=== PATIENT | male | born 1945 | race Hispanic/Latino ===

== ENCOUNTER 2018-01-18 12:18 | Outpatient (CLI) | payer MEDICARE ==
--- NOTE | 2018-01-18 13:54 | RAD ---
RIGHT KNEE 3 VIEWS: Date: 01/18/18 HISTORY: Right knee pain. FINDINGS: Degenerative changes are present. There is chondrocalcinosis. No fracture, dislocation, or bony destr uction identified. IMPRESSION: Right knee osteoarthritis. POS: BYRON
== END 2018-01-18 12:19 | disposition home or self-care (01) ==
LOC: RAD 12:18
PROVIDERS: ATTEND Family Medicine
DX: M22.2X1 Patellofemoral disorders, right knee (principal); M17.11 Unilateral primary osteoarthritis, right knee

== ENCOUNTER 2019-08-17 18:28 | Emergency (ER) | payer MEDICARE ==
--- NOTE | 2019-08-17 20:22 | CT ---
CT CERVICAL SPINE WITH SAGITTAL AND CORONAL REFORMATIONS: History: Fall, neck pain. FINDINGS: Degenerative changes are present. There is loss of cervical lordosis and straightening of the cervica l spine. No acute fracture or subluxation or malalignment is identified. IMPRESSION: As above. POS: MILY
--- NOTE | 2019-08-17 20:28 | CT ---
CT BRAIN NONCONTRAST: DATE: 08-17-2019 HISTORY: 73-year-old male status post acute head trauma from fall. FINDINGS: There is no midline shift or any other mass effect. There is no evidence of acute intracranial hemor rhage, large cortical infarct, obstructive hydrocephalus, or extraaxial fluid collection. The calvar ium is intact. IMPRESSION: No acute intracranial findings. nasrin POS: JIN
--- NOTE | 2019-08-17 20:31 | CT ---
CT MAXILLOFACIAL NONCONTRAST: DATE: 08-17-2019 HISTORY: 73-year-old male status post-acute facial trauma from fall. 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 No evidence of intra orbital edema, contusion, or gas. No air fluid levels in the paranasal sinuses. No hematoma in superf icial or deep soft tissues. No fracture. Poor dentation. IMPRESSION: 1. No acute fracture. 2. Bilateral staphylomas. POS: JIN
== END 2019-08-17 20:02 | disposition home or self-care (01) ==
LOC: ERS 18:28
DX: R04.0 Epistaxis (principal); F03.90 Unspecified dementia, unspecified severity, without behavioral disturbance, psychotic disturbance, mood disturbance, and anxiety; Z79.899 Other long term (current) drug therapy; W01.198A Fall on same level from slipping, tripping and stumbling with subsequent striking against other object, initial encounter
CPT/HCPCS: 70450; 70486; 72125

== ENCOUNTER 2020-04-02 12:22 | Emergency (ER) | payer MEDICARE ==
--- NOTE | 2020-04-02 13:31 | CT ---
CT BRAIN WITHOUT CONTRAST: HISTORY:Fall, headache COMPARISON:08/17/2019 FINDINGS: No evidence of acute infarct, hemorrhage, midline shift or abnormal extra-axial fluid collections is seen. The ventricular size is appropriate and the basilar cisterns are patent. The bony calvarium is intact. There is mild right periorbital soft tissue swelling.The visualized paranasal sinuses and mastoid air cells are well aerated. IMPRESSION: No CT evidence of acute intracranial process.
--- NOTE | 2020-04-02 13:33 | CT ---
CT cervical spine without contrast: 04/02/2020 COMPARISON: 08/17/2019 HISTORY: Fall, injury, trauma, pain TECHNIQUE: Axial CT imaging at 2.5 mm intervals through the cervical spine without contrast. Coronal and sagittal reformatted imaging obtained. FINDINGS: The C1 ring is intact. Occipital condyles, dens, and C1-2 articulation unremarkable. There is mild degenerative change at the atlantoaxial interspace. Cervical vertebral body height and alignment appears within normal limits. Disc space narrowing with anterior osteophyte formation noted at C4-5, C5-6, and C6-7. There is prominent atherosclerotic calcification involving the proximal aspect of the internal caroti d artery bilaterally. The imaged lung apices demonstrate prominent pleural-based increased density with adjacent parenchyma l opacity, only partially imaged, nonspecific, and stable. IMPRESSION: No acute fracture or dislocation seen.
[2020-04-02] MEDS ORDERED: Boostrix 0.5 ML (Tdap) VIAL ONE (13:46)
--- NOTE | 2020-04-02 13:48 | CT ---
CT of the facial bones: 04/02/2020 COMPARISON: 08/17/2019 HISTORY: Fall, trauma, pain TECHNIQUE: Axial CT imaging at 2.5 mm intervals through the facial bones with coronal and sagittal re formatted imaging FINDINGS: Injury, trauma, pain TECHNIQUE: There is mild wall thickening of the maxillary sinus on the left. The frontal sinuses, eth moid air cells, sphenoid sinuses, maxillary sinuses, and mastoid air cells are well-aerated. There is atherosclerotic calcification of the proximal ICA bilaterally. The left globe is elongated in the AP dimension, stable when compared to prior imaging. There is supr aorbital soft tissue swelling extending into the lateral aspect of the periorbital region on the right. There is soft tissue swelling anterior to the maxillary sinus on the left, along the inferior margin of the left orbit. Stable nondisplaced right nasal bone fracture. The zygomatic arches and the pterygoid plates are inta ct. There are degenerative changes involving bilateral temporomandibular joints. No evidence for an acute fracture of the mandible. The orbital floor and medial orbital wall appears intact bilaterally. IMPRESSION: Bilateral periorbital soft tissue swelling. No acute fracture.
[2020-04-02] MEDS ORDERED: Lidocaine 1% w/Epinephrine 1:100K 20 ML VIAL ONE (14:07)
== END 2020-04-02 15:01 | disposition home or self-care (01) ==
LOC: ERS 12:22
DX: S01.412A Laceration without foreign body of left cheek and temporomandibular area, initial encounter (principal); F03.90 Unspecified dementia, unspecified severity, without behavioral disturbance, psychotic disturbance, mood disturbance, and anxiety; Z79.899 Other long term (current) drug therapy; Z23 Encounter for immunization; W01.0XXA Fall on same level from slipping, tripping and stumbling without subsequent striking against object, initial encounter
CPT/HCPCS: 12014; 70450; 70486; 72125; 90471; 90715